=== PATIENT | male | born 1960 | race Caucasian/White ===

== ENCOUNTER 2019-04-04 11:24 | Emergency (ER) | payer OTHER, SELFPAY ==
[2019-04-04 11:54] VITALS: BP 152/106; PULSE 106; RESP 20; TEMP 36.6; O2SAT 98
--- NOTE | 2019-04-04 12:04 | W.ED.GENAD ---
Discharge Plan Disposition Patient Disposition: HOME Condition: Improving Discharge Details Chief Complaint: GenMedical Clinical Impression: Opiate withdrawal Primary Care Provider: Bogdan Floyd ED Provider: Celi Singer Home Meds and New Rx's Prescriptions: New morphine 60 mg capsule, ER multiphase 24 hr 60 mg PO DAILY Qty: 2 RF: 0 Continued lisinopril 20 mg tablet 20 mg PO DAILY Qty: 90 RF: 4 diclofenac sodium 75 mg tablet,delayed release (DR/EC) 75 mg PO BID Qty: 180 RF: 4 multivitamin [One Daily] 1 EACH tablet 1 tab PO DAILY RF: 0 Narcan 4 MG spray,non-aerosol 4 mg NS ONCE Qty: 1 RF: 0 omeprazole 40 MG capsule,delayed release(DR/EC) 40 mg PO DAILY Qty: 90 RF: 3 duloxetine 60 mg capsule,delayed release(DR/EC) 60 mg PO DAILY Qty: 90 RF: 4 morphine 60 mg tablet extended release 60 mg PO DAILY PRN MDD 60 mg Qty: 30 RF: 0 alprazolam 1 mg tablet 1 mg PO HS PRN (Reason: anxiety) Qty: 30 RF: 0 ascorbic acid (vitamin C) 1,000 MG tablet 1,000 mg PO DAILY RF: 0 Discharge Instructions Additional Instructions: Continue medications as previously prescribed. Please keep your upcoming appointment with primary care. If you develop any new or worsening symptoms please seek care urgently once again Referrals: Bogdan Floyd MD [Primary Care Provider] - Discharge Data Discharge Date/Time-TO BE ENTERED AT DEPARTURE: 04/04/19 13:19 Medical Decision Making Patient 59-year-old male who is on chronic opioids, presents today for opiate withdrawal. No vomiting or diarrhea. No abdominal pain. No chest pain, no shortness of breath. He is feeling he is in severe pain, tremulous. On exam, he does appear quite anxious. Vital signs significant for pulse of 106, blood pressure 152/106. Patient has history of osteoarthritis, GERD, Lyme, chronic back pain, hypertension. I did review the PDMP and patient is noted to be prescribed 60 mg morphine sulfate extended release tabs, 30 tabs per month. He seems to be picking these up on a regular basis by routine provider. I do not have concerns at this point for abuse. Patient will be given his daily dosing here. He has an appointment with his primary care in 2 days and will discuss this further with them at this time. After patient received today his daily morphine dose, he is feeling much improved. Is requesting discharge at this time. He has a scheduled appointment with primary care in 2 days at which time he will discuss his further narcotic need. All his questions and concerns were addressed and he is in agreement with this plan. HPI General Mode of arrival: ambulatory. Date/Time Provider Initiated Documentation: 04/04/19 12:01. Limitations to Documentation: no limitations. Information obtained by: patient and RN notes reviewed. HPI Narrative: Patient is 59-year-old male presents today with chief complaint of morphine withdrawal. He reports that he has been on this and release morphine for the past 3 years. States that over the last several months has been weaning himself down is now on 1 dosing of 60 mg p.o. extended release morphine daily. States that he takes this for his foot, knee, back, shoulder. States that he was camping recently and lost the remaining 10 to 11 pills. Is currently feeling shaky, has severe pain. Has not had any morphine in the past 2 days. Related Data Home Medications Medication Instructions Recorded Confirmed multivitamin [One Daily] 1 tab PO DAILY 11/30/12 04/04/19 ascorbic acid (vitamin C) 1,000 mg PO DAILY 06/13/14 04/04/19 Narcan 4 mg NS ONCE #1 spray 02/13/17 04/04/19 omeprazole 40 mg PO DAILY #90 tab-cap 03/23/18 04/04/19 diclofenac sodium 75 mg 75 mg PO BID #180 tab-cap 01/01/19 04/04/19 tablet,delayed release lisinopril 20 mg tablet 20 mg PO DAILY #90 tab 01/01/19 04/04/19 duloxetine 60 mg capsule,delayed 60 mg PO DAILY #90 cap 02/25/19 04/04/19 release morphine 60 mg tablet,extended 60 mg PO DAILY PRN #30 tab-cap MDD 03/15/19 04/04/19 release 60 mg alprazolam 1 mg tablet 1 mg PO HS PRN #30 tab-cap 03/25/19 04/04/19 morphine 60 mg PO DAILY #2 cap 04/04/19 Previous Rx's Medication Instructions Recorded omeprazole 40 mg PO DAILY #90 tab-cap 03/23/18 diclofenac sodium 75 mg 75 mg PO BID #180 tab-cap 01/01/19 tablet,delayed release lisinopril 20 mg tablet 20 mg PO DAILY #90 tab 01/01/19 duloxetine 60 mg capsule,delayed 60 mg PO DAILY #90 cap 02/25/19 release morphine 60 mg tablet,extended 60 mg PO DAILY PRN #30 tab-cap MDD 03/15/19 release 60 mg alprazolam 1 mg tablet 1 mg PO HS PRN #30 tab-cap 03/25/19 morphine 60 mg PO DAILY #2 cap 04/04/19 Allergies Allergy/AdvReac Type Severity Reaction Status Date / Time poison claudia extract Allergy Mild Topical Unverified 04/04/19 12:15 Irritation tramadol AdvReac Severe Confusion Unverified 04/04/19 12:15 fentanyl AdvReac Unverified 04/04/19 12:15 General Stated Complaint: GenMedical IRENE: 3 Review of Systems Constitutional Reports as per HPI, Denies chills, Denies fever(s), Denies headache(s), Denies lethargy and Denies poor appetite Eyes Denies change in vision ENT Denies dizziness and Denies headache(s) Cardiovascular Reports as per HPI, Denies dyspnea and Denies dyspnea on exertion Respiratory Reports as per HPI, Denies chest congestion, Denies cough, Denies pain on inspiration, Denies pain with cough, Denies dyspnea, Denies dyspnea on exertion and Denies wheezing Gastrointestinal Reports as per HPI, Denies abdominal pain, Denies diarrhea, Denies nausea and Denies vomiting Genitourinary Denies system reviewed and no additional complaints, except as docu (denies change in urinary habits) Musculoskeletal Reports as per HPI, Reports back pain, Reports myalgias and Reports atrophy (Patient has chronic pain) Integumentary/Breasts Reports as per HPI and Denies rash Neurologic Reports as per HPI, Denies dizziness, Denies headache(s) and Reports tremor(s) (Patient feels tremulous associated with opiate withdrawal) Allergic/Immunologic Denies wheezing [facility] Medical History BPH (benign prostatic hyperplasia) Chronic pain Hypertension Osteoarthritis Surgical History Cholecystectomy (~10/2009) Status post cholecystectomy (Resolved) Status post hip replacement (Resolved 06/20/14) Total replacement of hip Family History Mother No problems noted. Father MS (multiple sclerosis) Sister No problems noted. Brother Diabetes Son No problems noted. Son No problems noted. Daughter No problems noted. Maternal Aunt Neoplasm Social History Smoking/Tobacco Use Status: Never Alcohol Intake: never Drug use: Never Substance use type: does not use Pets and animals: Yes Pets and animals: dog(s) What type of physical activity do you participate in: none Lula/Buddhist: Oriental Orthodox Do you feel safe in your relationship?: Yes Exam Const General: cooperative, healthy appearing, no acute distress, well developed and anxious Nutritional Appearance: well nourished and overweight Orientation: alert, awake and oriented x3 HENMT Head: normal to inspection Ears: hearing grossly normal bilaterally Mouth: moist mucous membranes Chest Chest: normal inspection of the chest, normal palpation of entire chest wall and no crepitus Resp Effort & Inspection: normal respiratory effort, able to speak in complete sentences and no respiratory distress Auscultation: clear to auscultation bilaterally, no rales, no rhonchi and no wheezes Cardio Rate: regular rate Rhythm: regular rhythm Heart Sounds: S1 normal and S2 normal GI Inspection: normal to inspection, no edema, non-distended and obesity Palpation: soft, no hepatosplenomegaly, not firm, no guarding, not rigid and nontender Auscultation: normal bowel sounds Skin General skin exam: no rashes or lesions noted Trauma: no lacerations or abrasions Neuro General: alert, awake and oriented x3 Cognition: normal cognition Speech: speech normal Gait: normal gait Psych Appearance: grossly normal and well kempt Mental Status: mental status grossly normal Speech and Movement: speech and movement normal Course Vital Signs Temperature 36.6 C 04/04/19 11:54 Pulse 106 H 04/04/19 11:54 Respiratory Rate 20 04/04/19 11:54 Blood Pressure 152/106 H 04/04/19 11:54 Pulse Oximetry 98 04/04/19 11:54 Temperature 36.6 C 04/04/19 11:54 Temperature Source Skin 04/04/19 11:54 Pulse 106 H 04/04/19 11:54 Respiratory Rate 20 04/04/19 11:54 Respiratory Effort Non-Labored 04/04/19 11:57 Blood Pressure 152/106 H 04/04/19 11:54 Pulse Oximetry 98 04/04/19 11:54 Oxygen Delivery Method Room Air 04/04/19 11:54 Oxygen Flow Rate 0 04/04/19 11:54
[2019-04-04 13:20] VITALS: BP 144/89; PULSE 95; RESP 20; O2SAT 96
== END 2019-04-04 13:19 | disposition home or self-care (01) ==
PROVIDERS: Emergency Provider Physician Assistant; PCP Family Medicine
DX: F11.93 Opioid use, unspecified with withdrawal (principal); G89.29 Other chronic pain; M54.9 Dorsalgia, unspecified; I10 Essential (primary) hypertension
CPT/HCPCS: 99283

== ENCOUNTER 2019-07-10 05:15 | Emergency (ER) | payer OTHER, SELFPAY ==
[2019-07-10] VITALS (7 sets, daily range): BP systolic 129–155; BP diastolic 80–95; PULSE 63–86; RESP 15–19; TEMP 36.8; O2SAT 96–98
[2019-07-10 06:11] LABS: Abs Immature Grans 0.03 k/cumm (0.0-0.09); Absolute Basophil Count 0.02 k/cumm (0.0-0.2); Absolute Eosinophil Count 0.12 k/cumm (0.0-0.7); Absolute Monocyte Count 0.56 k/cumm (0.11-0.7); Absolute Neutrophil Count 2.02 k/cumm (1.2-6.7); Basophils % 0.5; HCT 43.2 % (40.0-50.0); HGB 14.3 g/dL (13.5-17.5); Immature Grans % 0.7; Lymphocytes % 32.1; Mean Corp. HGB Concentration 33.1 g/dL (32.0-36.0); Mean Corpuscular Hemoglobin 31.1 pg (27.0-33.0); Mean Corpuscular Volume 93.9 fL (80-95); Mean Platelet Volume 9.8 fL (8.0-11.0); Monocytes % 13.8; Neutrophils % 49.9; Platelet Count 238 x1000/uL (130-400); RBC Distribution Width 12.9 % (11.8-14.1); White Blood Cell Count 4.05 k/cumm (4.4-10.8)
--- NOTE | 2019-07-10 06:17 | ED.GENADUL_ITS ---
Discharge Plan Disposition Patient Disposition: HOME Condition: Good Discharge Details Chief Complaint: Chest Pain Clinical Impression: Acute epigastric pain, Hepatic cyst Primary Care Provider: Bogdan Floyd ED Provider: Jose Maria Nielson Home Meds and New Rx's Prescriptions: New ranitidine HCl 300 mg capsule 300 mg PO BID 30 Days Qty: 60 RF: 0 sucralfate [Carafate] 1 gram tablet 1 gm PO BID 30 Days Qty: 60 RF: 0 lidocaine [Lidoderm] 1 PATCH patch 1 patch Topical Q24H Qty: 4 RF: 0 No Action lisinopril 20 mg tablet 20 mg PO DAILY Qty: 90 RF: 4 diclofenac sodium 75 mg tablet,delayed release (DR/EC) 75 mg PO BID Qty: 180 RF: 4 omeprazole 40 mg capsule,delayed release(DR/EC) 40 mg PO DAILY Qty: 90 RF: 3 multivitamin [One Daily] 1 EACH tablet 1 tab PO DAILY RF: 0 Narcan 4 MG spray,non-aerosol 4 mg NS ONCE Qty: 1 RF: 0 duloxetine 60 mg capsule,delayed release(DR/EC) 60 mg PO DAILY Qty: 90 RF: 4 alprazolam 1 mg tablet 1 mg PO HS PRN (Reason: anxiety) Qty: 30 RF: 0 morphine 60 mg tablet extended release 60 mg PO DAILY PRN MDD 60 mg Qty: 30 RF: 0 ascorbic acid (vitamin C) 1,000 MG tablet 1,000 mg PO DAILY RF: 0 Discharge Instructions Instructions: Gastritis (ED) Additional Instructions: At this time there is no evidence of significant heart abnormality, your CT scan does show some hepatic cysts which are otherwise unremarkable. You do have notable thickening of your esophagus suggestive of gastritis and inflammation. Please take your omeprazole, but please also take the new Carafate and ranitidine as directed. Avoid any spicy foods, tomato-based products, or citrus products. Please use the Lidoderm patch for your back, if your insurance does not cover the prescribed medication and you can get [id number] Lidoderm patches at 4%. If you notice any worsening of your symptoms, or any new symptoms such as vomiting, diarrhea, fever, chills, shortness of breath, chest pain, numbness, weakness, or fainting , please return immediately to the emergency department for reevaluation. Please follow up with your primary care provider as soon as possible for reassessment and reevaluation. As always, it was a pleasure participating in your medical care today. Referrals: Bogdan Floyd MD [Primary Care Provider] - Discharge Data Discharge Date/Time-TO BE ENTERED AT DEPARTURE: 07/10/19 08:27 Medical Decision Making This is a 59-year-old male with past medical history of chronic back pain, chronic degenerative disc disease, previous reflux, NSAID use for his chronic back pain, chronic narcotic use for his chronic pain, hypertension, and sacroiliitis who presents today for evaluation of back chest and abdominal pain. Pain is mild, and definitely more chronic than acute. Vascular exam is unremarkable. Mild reproducible tenderness in the epigastric region. Differential is highest for gastritis and esophagitis with his long-standing NSAID use, however his chest pain in conjunction with the back pain obviously increases the differential for life-threatening abnormalities like dissection although less likely. CTA of the chest abdomen and pelvis demonstrates no evidence of dissection aneurysm or PE. He does have some hepatic cysts, but no other acute process. He does have mildly thickened esophagus, which would correlate well with esophagitis. He was given a GI cocktail and this resolved his symptoms. Troponin, EKG are unremarkable, laboratory work-up benign. Erica ent feeling much better. Signs and symptoms at this time appear clinically consistent with esophagitis and gastritis. Clinically inconsistent with dissection, PE, or ACS especially due to the chronicity of symptoms. I do feel that aggressive treatment of his reflux is indicated at this time. We will add Carafate, ranitidine, and can recommend continuing his omeprazole. Discussed dietary changes, and the importance of close follow-up with PCP. I have extensively reviewed the treatment plan and discharge instructions with the patient and their family. I have addressed all patient concerns at this time. The patient and family was made aware of what symptoms to monitor for that would warrant a return to the emergency department. Discussed the plan with the patient and family, they demonstrate verbal understanding and agreement with our assessment and plan at this time. EKG 5: 32 Rate 69, intervals normal, sinus rhythm, no significant ST elevations or depressions, no T wave inversions except for lead III and aVF. No Q waves. No evidence of STEMI. Minimal less than 1 mm repolarization in V1 and V2. EKG from 06/04/2019 shows identical findings. FINDINGS: Pulmonary arteries: Normal. No pulmonary emboli. Aorta: Unremarkable. No aortic aneurysm. No aortic dissection. Aortic valvular calcifications. Lungs: Tiny 1.5 mm calcified granuloma of the right lower lung. No con solidation. No masses. Pleural space: Unremarkable. No pneumothorax. No pleural effusion. Heart: Unremarkable. No cardiomegaly. No pericardial effusion. Mediastinum: The esophagus appears mildly thickened and/or filled with fluid. Lymph nodes: Unremarkable. No enlarged lymph nodes. Bones/joints: Severe degenerative changes are partially visualized at the shoulders. Healed right posterior rib fractures. No acute fracture. Soft tissues: Unremarkable. IMPRESSION: 1. No acute vascular findings. 2. Mildly thickened and/or fluid filled esophagus. Recommend correlation for reflux and/or esophagitis. FINDINGS: Aorta: No aortic aneurysm. No aortic dissection. Celiac trunk and mesenteric arteries: No occlusion or significant stenosis. Atherosclerotic calcification at the origin of the celiac trunk without flow limiting stenosis. Renal arteries: No occlusion or significant stenosis. Liver: See Gallbladder And Bile Ducts Finding. Gallbladder and bile ducts: The gallbladder is absent with moderate biliary ductal dilatation. Intrahepatic ductal dilatation with likely small biliary cysts demonstrated within the left liver. Other well marginated fluid density cysts are seen elsewhere throughout the liver, not particular connected to the biliary tree with the largest at the inferior right liver measuring 2.5 cm. Pancreas: Normal. No ductal dilation. Spleen: Normal. No splenomegaly. Adrenals: Normal. No mass. Kidneys and ureters: No hydronephrosis. No stones. Partially visualized right kidney which demonstrates a lower pelvic positioning. Stomach and bowel: Unremarkable. No obstruction. No mucosal thickening. Lymph nodes: Unremarkable. No enlarged lymph nodes. Intraperitoneal space: Unremarkable. No free air. No significant fluid collection. Bones/joints: Unremarkable. No acute fracture. No dislocation. Dextroconvex thoracolumbar curvature. Spondylosis. No no acute abnormality. No suspicious osseous lesion. Soft tissues: Unremarkable. IMPRESSION: 1. No acute abdominal vascular findings. 2. Absent gallbladder with biliary ductal dilatation, including intrahepatic bile duct dilatation. Small cysts appear to indicate with the biliary system on the left, likely biliary cysts. Other well marginated fluid density cysts are seen elsewhere throughout the liver as described above. Thank you for allowing us to participate in the care of your patient. Dictated and Authenticated by: Bogdan Huffman MD 07/10/2019 7:47 AM Eastern Time ([place] & [place]) HPI General Date/Time Provider Initiated Documentation: 07/10/19 05:17 . HPI Narrative: This is a 59-year-old male with past medical history of chronic back pain, chronic degenerative disc disease, previous reflux, NSAID use for his chronic back pain, chronic narcotic use for his chronic pain, hypertension, and sacroiliitis who presents today for evaluation of back chest and abdominal pain. Patient states that he has had his achy/burning/pressure-like sensation that goes from his back to his epigastric area and into his chest. It is been present for the last few weeks, however it has worsened in the last 4 to 5 days. He denies any tearing or ripping sensation. He denies any personal or family history of dissection or aneurysm. He denies any previous history of cardiac disease. He has had a stress test recently for 1 of his future surgeries, this test was unremarkable on an outpatient basis. Patient has no other complaints at this time. He denies any exertional component. He denies any fever or chills, cough or shortness of breath. Related Data Home Medications Medication Instructions Recorded Confirmed multivitamin [One Daily] 1 tab PO DAILY 11/30/12 07/10/19 ascorbic acid (vitamin C) 1,000 mg PO DAILY 06/13/14 07/10/19 Narcan 4 mg NS ONCE #1 spray 02/13/17 07/10/19 diclofenac sodium 75 mg 75 mg PO BID #180 tab-cap 01/01/19 07/10/19 tablet,delayed release lisinopril 20 mg tablet 20 mg PO DAILY #90 tab 01/01/19 07/10/19 duloxetine 60 mg capsule,delayed 60 mg PO DAILY #90 cap 02/25/19 07/10/19 release omeprazole 40 mg capsule,delayed 40 mg PO DAILY #90 tab-cap 04/06/19 07/10/19 release alprazolam 1 mg tablet 1 mg PO HS PRN #30 tab-cap 06/29/19 07/10/19 morphine 60 mg tablet,extended 60 mg PO DAILY PRN #30 tab-cap MDD 06/29/19 07/10/19 release 60 mg lidocaine [Lidoderm] 1 patch TOPICAL Q24H #4 patch 07/10/19 ranitidine HCl 300 mg PO BID 30 Days #60 cap 07/10/19 sucralfate [Carafate] 1 gm PO BID 30 Days #60 tab 07/10/19 Previous Rx's Medication Instructions Recorded diclofenac sodium 75 mg 75 mg PO BID #180 tab-cap 01/01/19 tablet,delayed release lisinopril 20 mg tablet 20 mg PO DAILY #90 tab 01/01/19 duloxetine 60 mg capsule,delayed 60 mg PO DAILY #90 cap 02/25/19 release omeprazole 40 mg capsule,delayed 40 mg PO DAILY #90 tab-cap 04/06/19 release alprazolam 1 mg tablet 1 mg PO HS PRN #30 tab-cap 06/29/19 morphine 60 mg tablet,extended 60 mg PO DAILY PRN #30 tab-cap MDD 06/29/19 release 60 mg lidocaine [Lidoderm] 1 patch TOPICAL Q24H #4 patch 07/10/19 ranitidine HCl 300 mg PO BID 30 Days #60 cap 07/10/19 sucralfate [Carafate] 1 gm PO BID 30 Days #60 tab 07/10/19 Allergies Allergy/AdvReac Type Severity Reaction Status Date / Time poison claudia extract Allergy Mild Topical Unverified 06/04/19 13:26 Irritation tramadol AdvReac Severe Confusion Unverified 06/04/19 13:26 fentanyl AdvReac Unverified 06/04/19 13:26 General IRENE: 3 Review of Systems All systems reviewed & are unremarkable except as noted in HPI and below PFSH Family History Mother No problems noted. Father MS (multiple sclerosis) Sister No problems noted. Brother Diabetes Son No problems noted. Son No problems noted. Daughter No problems noted. Maternal Aunt Neoplasm BREAST;ADNEXA Social History Smoking/Tobacco Use Status: Never Alcohol Intake: never Drug use: Never Substance use type: does not use Pets and animals: Yes Pets and animals: dog(s) What type of physical activity do you participate in: none Lula/Druze: Christianity Do you feel safe in your relationship?: Yes Exam Narrative Exam Narrative: 1.Const: Well-nourished, Well-developed, appearing stated age 2.Eyes: PERRL, no conjunctival injection, and symmetrical lids. 3.ENT: Atraumatic external nose and ears. Moist MM. Neck: Symmetric, trachea midline, No thyromegaly. 4.CVS: +S1/S2, No murmurs or gallops. Peripheral pulses 2+ and equal in all extremities. Brisk capillary refill in all extremities. Radial pulses are equal bilaterally. No significant reproducible chest wall tenderness. 5.RESP: Unlabored respiratory effort. Clear to auscultation bilaterally. No wheezes rales or rhonchi 6.GI: Soft, Nondistended, No hepatosplenomegaly. No guarding or rebound. Minimal epigastric tenderness. 7.MSK: Normocephalic/Atraumatic, Extremities w/o deformity or ttp No cyanosis or clubbing, Normal movement of all extremities 8.Skin: Warm, Dry. No rashes or lesions. 9.Neuro: last waxer II-XII grossly intact. Sensation grossly intact, no focal neurologic deficits. 10.Psych: (AAO) x3. Appropriate mood and affect Course Lab/Test Results Lab/Test Results: Laboratory Tests Range/Units 07/10/19 06:00 WBC (4.4-10.8) k/cumm 4.05 L RBC (4.50-6.00) m/cumm 4.60 Hgb (13.5-17.5) g/dL 14.3 Hct (40.0-50.0) % 43.2 MCV (80-95) fL 93.9 MCH (27.0-33.0) pg 31.1 MCHC (32.0-36.0) g/dL 33.1 RDW (11.8-14.1) % 12.9 Plt Count (130-400) x1000/uL 238 MPV (8.0-11.0) fL 9.8 Immature Gran % 0.7 Neutrophils % 49.9 Lymphocytes % 32.1 Monocytes % 13.8 Eosinophils % 3.0 Basophils % 0.5 Absolute Neutrophils (1.2-6.7) k/cumm 2.02 Absolute Lymphocytes (1.2-3.4) k/cumm 1.30 Absolute Monocytes (0.11-0.7) k/cumm 0.56 Absolute Eosinophils (0.0-0.7) k/cumm 0.12 Absolute Basophils (0.0-0.2) k/cumm 0.02
[2019-07-10 06:26] LABS: ALT 37 U/L (16-63); AST 22 U/L (15-37); Alkaline Phosphatase 106 U/L (46-116); BUN 27 mg/dL (7-18); Bilirubin, Total 0.2 mg/dL (0.2-1.0); CREATININE 0.84 mg/dL (0.70-1.30); Chloride 103 mmol/L (98-107); Glucose 109 mg/dL (74-106); Lipase 86 U/L (73-393); Potassium 4.9 mmol/L (3.5-5.1); Sodium 139 mmol/L (136-145); Total Protein 7.9 g/dL (6.4-8.2)
[2019-07-10 06:33] LABS: Troponin I < 0.05 ng/Ml (<0.06)
[2019-07-10] MEDS: Acetaminophen 500 MG TAB 1000 MG PO (06:40)
--- NOTE | 2019-07-10 07:04 | DI.CT_ITS ---
EXAM: CT THORAX ABDOMEN CTA CLINICAL HISTORY: pain from back to chest, and lower back pain TECHNIQUE: 100 cc Omnipaque 350. The injection rate was decreased due to limited IV access. COMPARISON: PELVIC/LOWER ABD WITH CON(P) from 12/30/2011 FINDINGS: There is no evidence of aortic dissection or aneurysm. The pulmonary arteries are suboptimally opac ified. No central pulmonary emboli are seen. There are no pleural or pericardial effusions or evide nce of infiltrates. No adenopathy is seen. The esophagus appears fluid filled. The stomach shows m inimal fluid and is not distended. There are mild atherosclerotic changes at the distal abdominal ao rta and proximal iliac arteries. The celiac axis, SMA and renal arteries appear patent. Patient is status post cholecystectomy. There are multiple low-density lesions of the liver likely representing cysts. The spleen, pancreas and adrenals appear normal. 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 Degenerative changes and scoliosis are noted in the spine. The visualized portions of the bowel are unremarkable. IMPRESSION: No acute abnormality.
[2019-07-10] MEDS: Omnipaque 350 MG/ML 100 ML BTL IJ (07:06)
[2019-07-10] MEDS: Lidocaine 5% Patch 1 PATCH TP (07:37)
--- NOTE | 2019-07-10 07:47 | DI.VRAD_ITS ---
PROCEDURE INFORMATION: Exam: CT Angiography Chest With Contrast Exam date and time: 07/10/2019 5:26 AM Age: 59 years old Clinical history: Other: Pain from back to chest and lower back TECHNIQUE: Imaging protocol: Computed tomographic angiography of the chest with intravenous contrast. 3D rendering: MIP reconstructed images were created and reviewed. Radiation optimization: All CT scans at this facility use at least one of these dose optimization techniques: automated exposure control; mA and/or kV adjustment per patient size (includes targeted exams where dose is matched to clinical indication); or iterative reconstruction. Contrast material: [id number]; Contrast volume: 100 ml; Contrast route: IV LT HAND 20G; COMPARISON: CR RIGHT RIBS PA CXR-3 VIEWS 08/10/2017 3:46 PM FINDINGS: Pulmonary arteries: Normal. No pulmonary emboli. Aorta: Unremarkable. No aortic aneurysm. No aortic dissection. Aortic valvular calcifications. Lungs: Tiny 1.5 mm calcified granuloma of the right lower lung. No consolidation. No masses. Pleural space: Unremarkable. No pneumothorax. No pleural effusion. Heart: Unremarkable. No cardiomegaly. No pericardial effusion. Mediastinum: The esophagus appears mildly thickened and/or filled with fluid. Lymph nodes: Unremarkable. No enlarged lymph nodes. Bones/joints: Severe degenerative changes are partially visualized at the shoulders. Healed right posterior rib fractures. No acute fracture. Soft tissues: Unremarkable. IMPRESSION: 1. No acute vascular findings. 2. Mildly thickened and/or fluid filled esophagus. Recommend correlation for reflux and/or esophagitis. PROCEDURE INFORMATION: Exam: CT Angiography Abdomen With Contrast Exam date and time: 07/10/2019 5:26 AM Age: 59 years old Clinical history: Other: Pain from back to chest and lower back TECHNIQUE: Imaging protocol: Computed tomographic angiography images of the abdomen with intravenous contrast material. 3D rendering: MIP reconstructed images were created and reviewed. Radiation optimization: All CT scans at this facility use at least one of these dose optimization techniques: automated exposure control; mA and/or kV adjustment per patient size (includes targeted exams where dose is matched to clinical indication); or iterative reconstruction. Contrast material: [id number]; Contrast volume: 100 ml; Contrast route: IV LT HAND 20G; COMPARISON: CR RIGHT RIBS PA CXR-3 VIEWS 08/10/2017 3:46 PM FINDINGS: Aorta: No aortic aneurysm. No aortic dissection. Celiac trunk and mesenteric arteries: No occlusion or significant stenosis. Atherosclerotic calcification at the origin of the celiac trunk without flow limiting stenosis. Renal arteries: No occlusion or significant stenosis. Liver: See Gallbladder And Bile Ducts Finding. Gallbladder and bile ducts: The gallbladder is absent with moderate biliary ductal dilatation. Intrahepatic ductal dilatation with likely small biliary cysts demonstrated within the left liver. Other well marginated fluid density cysts are seen elsewhere throughout the liver, not particular connected to the biliary tree with the largest at the inferior right liver measuring 2.5 cm. Pancreas: Normal. No ductal dilation. Spleen: Normal. No splenomegaly. Adrenals: Normal. No mass. Kidneys and ureters: No hydronephrosis. No stones. Partially visualized right kidney which demonstrates a lower pelvic positioning. Stomach and bowel: Unremarkable. No obstruction. No mucosal thickening. Lymph nodes: Unremarkable. No enlarged lymph nodes. Intraperitoneal space: Unremarkable. No free air. No significant fluid collection. Bones/joints: Unremarkable. No acute fracture. No dislocation. Dextroconvex thoracolumbar curvature. Spondylosis. No no acute abnormality. No suspicious osseous lesion. Soft tissues: Unremarkable. IMPRESSION: 1. No acute abdominal vascular findings. 2. Absent gallbladder with biliary ductal dilatation, including intrahepatic bile duct dilatation. Small cysts appear to indicate with the biliary system on the left, likely biliary cysts. Other well marginated fluid density cysts are seen elsewhere throughout the liver as described above. Dictated and Authenticated by: Bogdan Huffman MD. Ordering:ROSA Moise MD
[2019-07-10 08:04] LABS: Bilirubin Negative (Negative); Blood Trace-intact (Negative); Clarity Clear (Clear); Glucose Negative (Negative); Ketones Negative (Negative); Leukocyte Esterase Negative (Negative); Nitrite Negative (Negative); Urobilinogen 0.2 EU/dL (Up TO 0.2)
[2019-07-10 08:24] LABS: Bacteria Negative HPF (Negative); C & S Indicated? No; Casts Negative LPF (Negative); Crystals Negative HPF (Negative); Epithelial Cells Negative HPF (Negative); Mucus Trace (Negative); RBC Negative HPF (0-2); WBC 0-2 HPF (0-5)
== END 2019-07-10 08:27 | disposition home or self-care (01) ==
PROVIDERS: Emergency Provider Student in an Organized Health Care Education/Training Program; PCP Family Medicine
DX: R10.13 Epigastric pain (principal); K76.89 Other specified diseases of liver; I10 Essential (primary) hypertension
CPT/HCPCS: 36415; 71275; 74175; 80053; 83690; 93005; 99285; 81003; 81015; 84484; 85025; 93010; J3490

== ENCOUNTER 2019-12-03 08:14 | Outpatient (CLI) | payer OTHER, SELFPAY ==
--- NOTE | 2019-12-03 | DI.RAD_ITS ---
EXAM: XR FOOT RT COMPLETE and XR ankle right complete CLINICAL HISTORY: RT FOOT PAIN, M79.671,STATUS OF ARTHRODESIS,Z98.1,Z98.890. RT ANKLE PAIN TECHNIQUE: 2D digital imaging was performed. COMPARISON: RIGHT FOOT COMPLETE from 08/29/2015 XR ankle and foot right from [facility], September 2019 FINDINGS: BONES: The bones appear osteopenic which may be due to decreased use. There are again seen findings of arthrodesis of the 1st tarsal metatarsal joint, the talonavicular joint and the talocalcaneal join t. Orthopedic hardware appears intact. JOINTS: No dislocation present. SOFT TISSUE: There is soft tissue swelling about the hindfoot. IMPRESSION: 1. Stable postsurgical changes of the right foot. 2. Generalized osteopenia which may be due to decreased use. DATA REPOSITORY: RADIATION DOSE DELIVERED:
== END 2019-12-03 08:34 ==
PROVIDERS: PCP Family Medicine; Visit Provider Orthopaedic Surgery Foot and Ankle Surgery
DX: M79.671 Pain in right foot (principal); Z98.1 Arthrodesis status; M25.571 Pain in right ankle and joints of right foot; M85.88 Other specified disorders of bone density and structure, other site; M79.89 Other specified soft tissue disorders
CPT/HCPCS: 73610; 73630

== ENCOUNTER 2020-01-14 09:26 | Outpatient (CLI) | payer OTHER, SELFPAY ==
--- NOTE | 2020-01-14 09:15 | DI.RAD_ITS ---
EXAM: XR KNEE LT 2V AP,LAT CLINICAL HISTORY: knee pain. TECHNIQUE: 2D digital imaging was performed. COMPARISON: No exams were available for comparison FINDINGS: There is severe narrowing of both medial and lateral femoral tibial joints, with [id number] appeara nce. There is lateral subluxation of the tibia with respect to the femoral condyles. There is promi nent periarticular spurring and sclerosis. There is also prominent spurring at the patellofemoral hilaria int. A joint effusion is seen. IMPRESSION: Severe degenerative changes of the femoral tibial joints. DATA REPOSITORY: RADIATION DOSE DELIVERED:
--- NOTE | 2020-01-14 09:15 | DI.RAD_ITS ---
EXAM: XR STANDING ALIGNMENT CLINICAL HISTORY: knee pain. TECHNIQUE: 2D digital imaging was performed. Standing AP views were performed from the upper pelvis through the ankles. COMPARISON: CR RT HIP COMPLETE AP PELVIS from 06/21/2015 CR RIGHT ANKLE COMPLETE from 08/29/2015 CR XR ANKLE RT COMPLETE from 12/03/2019 FINDINGS: There is a right total hip prosthesis. There is mild left hip joint space narrowing and acetabular s purring, not significantly changed. The left humeral head projects superior to the right. There are severe degenerative changes of the medial femoral tibial joint of the left knee with varus angulatio n. The right knee joint spaces are well maintained. There is the lateral joint space of the right a nkle. Hardware is seen. There is narrowing of the medial tibiotalar joint the left ankle.. IMPRESSION: Severe degenerative changes of the medial femoral tibial joint of the left knee. Leg length discrepa ncy. DATA REPOSITORY: RADIATION DOSE DELIVERED:
== END 2020-01-14 09:46 ==
PROVIDERS: PCP Family Medicine; Referring Provider Family Medicine; Visit Provider Student in an Organized Health Care Education/Training Program
DX: M25.562 Pain in left knee (principal); M25.462 Effusion, left knee; M17.12 Unilateral primary osteoarthritis, left knee; M16.12 Unilateral primary osteoarthritis, left hip; M21.70 Unequal limb length (acquired), unspecified site; Z96.641 Presence of right artificial hip joint
CPT/HCPCS: 73560; 77073

== ENCOUNTER 2020-03-17 07:27 | Outpatient (CLI) | payer OTHER, SELFPAY ==
[2020-03-19 00:30] LABS: COVID-19 RT-PCR Result NEGATIVE (Negative)
== END 2020-03-17 07:47 ==
PROVIDERS: PCP Family Medicine; Visit Provider Student in an Organized Health Care Education/Training Program
DX: Z01.818 Encounter for other preprocedural examination (principal)
CPT/HCPCS: U0003

== ENCOUNTER 2020-03-21 07:00 | Inpatient (IN) | payer OTHER, SELFPAY ==
[2020-03-21] VITALS (9 sets, daily range): BP systolic 121–153; BP diastolic 71–93; PULSE 61–75; RESP 13–20; TEMP 36.2–36.8; O2SAT 98–99
[2020-03-21 08:17] LABS: HCT 43.1 % (40.0-50.0); MCH 30.9 pg (27.0-33.0); MCHC 32.5 % (32.0-36.0); MCV 95.1 fL (80-95); MPV 9.8 fL (8.0-11.0); Platelet Count 239 10^3/uL (130-400); RBC 4.53 10^6/uL (4.36-5.78); RDW 13.1 % (11.8-14.1); RDW-SD 45.9 fL; WBC 4.88 10^3/uL (4.4-10.8)
[2020-03-21] MEDS: Acetaminophen 500 MG TAB 1000 MG PO (08:17)
[2020-03-21] MEDS: Gabapentin 300 MG CAP PO (08:18)
[2020-03-21] MEDS: Celecoxib 200 MG CAP 400 MG PO (08:18)
[2020-03-21] MEDS: Lactated Ringers 1,000 ML 80 ML IV ×2 (08:18→12:21)
[2020-03-21 08:31] LABS: Anion Gap 8.7 mmol/L (3-11); BUN 20 mg/dL (7-18); CO2 26.3 mmol/L (21.0-32.0); CREATININE 0.81 mg/dL (0.70-1.30); Calcium 9.3 mg/dL (8.5-10.1); Chloride 102 mmol/L (98-107); Glucose 115 mg/dL (74-106); Potassium 4.5 mmol/L (3.5-5.1); Sodium 137 mmol/L (136-145)
[2020-03-21] MEDS: ceFAZolin 2 GM/50 ML BAG IVPB (10:44)
[2020-03-21] MEDS: Bupivacaine 0.25% Pres-Free 30 ML VIAL (12:06)
[2020-03-21] MEDS: Normal Saline 20 ML VIAL (12:07)
[2020-03-21] MEDS: Ketorolac 30 MG/ML VIAL (12:07)
--- NOTE | 2020-03-21 12:55 | ROE_ITS ---
Date of service: 03/21/20 Time of Service: 12:55 Operative Note Operative Note DATE OF PROCEDURE: 03/21/20 PRE-OP DIAGNOSIS: Left Knee Arthritis POST-OP DIAGNOSIS: same PROCEDURE: Left Total Knee Arthroplasty with Intraoperative Navigation SURGEON: Dayton White ROUGH RICE GRADER: Maria Isabel Lizarraga ANESTHESIA: regional and spinal ESTIMATED BLOOD LOSS: 150 PATHOLOGY: none sent TOURNIQUET TIME: 28 COMPLICATIONS: None Patient was transported to: PACU Patient's condition: stable Implants: 1. Depuy Attune Cruciate Retaining Femoral Component, Size 8 2. Depuy Attune Rotating Platform Tibial Component, Size 7 3. Depuy Attune 8x7mm CR, RP Poly 4. Depuy Attune Patellar Component, Size 38mm Indications: I have seen Bam in clinic for symptoms of knee arthritis, confirmed with radiographic findings. Bam has exhausted nonoperative methods and was having significant limitations in daily function and desired better function and less pain. I discussed the technical details of a knee replacement. I explained the risks of the procedure to include, but not limited to, bleeding, infection, pain, stiffness, fracture, damage to nerves and vessels, damage to muscles and tendons, loosening, need for repeat procedure, blood clot and cardiopulmonary demise. Despite these risks, he elected to proceed. Findings: There was significant signs of arthritis throughout the knee. Practically no cartilage was remaining over the medial femur or a large portion of the lateral femur. Large osteophytes are present throughout all 3 compartments. Procedure Description: Bam was greeted in the preoperative holding area where the correct side was identified and marked. The consent was reviewed with the patient and signed. The history and physical was updated. All questions were answered. Preoperative mediacations were administered: Acetaminophen 1000mg, Celebrex 400mg, Gabapentin 300mg, and Oxycontin 10mg. An adductor canal block was then administered by the anesthesia team in the PACU. Bam was taken back to the operating room. A spinal anesthestic was then administered. The patient was placed into the supine position on the operating room table. A nonsterile tourniquet was placed high onto the leg but only used for cementing. Posts were placed for positioning during the procedure. All bony prominences were well padded. Prophylactic antibiotics in the form of cefazolin were administered. 1g of Tranxemic Acid was given intravenously within 30 minutes of incision. The left leg was then prepped with Chloraprep and draped in a standard fashion with impervious stockinette and extremity drape with Iodine impregnated skin protection. A timeout to confirm correct identity, side and site, procedure, allergies, anesthesia, and medical concerns was performed. With the knee in some flexion, a midline incision was made overlying the knee. Full thickness skin flaps were raised once the extensor mechanism was encountered. These were raised medially and laterally. Any bleeding was controlled with electrocautery. Once the extensor mechanism was fully exposed, a medial parapatellar arthrotomy was performed in a flexed position. All bleeding from the arthrotomy and the geniculate arteries was coagulated. A medial subperiosteal peel was performed with electrocautery to the midcoronal plane. The fat pad was removed while keeping the patellar tendon protected. The anterior distal femur synovium was removed for later visualization. The ACL and PCL were resected and the anterior horn of the lateral meniscus was transected. The knee was then flexed with the patella everted. Large osteophytes from the tibia were removed. Large osteophytes from the femur were removed. A single starting pin was then placed 1cm anterior to the PCL insertion and the notch in the direction of the femoral head. The OrthoAlign device was applied over the pin. It was oriented to be in line with the epicondylar axis and the trochlear groove. It was then pinned into place. The navigation computer was then turned on and calibrated. The distal femur cut was set at 0 degrees varus/valgus and 2.5 degrees flexion. The distal femur cutting guide then was positioned for a 9mm cut. The distal femur was cut with an oscillating saw while protecting the soft tissues. The tibia was then addressed. The OrthoAlign device was placed over the tibial tubercle and medial tibia and secured into position. Once again, OrthoAlign was calibrated and then set for a 0 degree varus/valgus cut and 6 degrees of posterior slope. With this locked into position, the cut thickness stylus was used to assess cut thickness. The medial side, most involved side, was set for a 2mm cut. This was then held in position and pinned into place with 2 additional pins and a cross pin for stability. The medial and lateral collateral ligaments were protected and the cut was performed. With this completed, it was assessed and noted to be of appropriate dimensions. The guide and OrthoAlign was removed. A spacer block was inserted and the knee was brought into extension. The 7mm spacer block provided full extension, without hyperextension and with stability of both the medial and lateral collateral ligaments was assessed. The pins from the femur and the tibia were then removed. The distal femur was then sized. The anterior stylus was placed onto the lateral ridge of the anterior femur. This indicated a size 8 femur. The external rotation of the guide was adjusted to 5 degrees to match the epicondylar axis, perpendicular to [place]?s line. The 4-in-1 cutting guide was the placed. The posterior medial femur cut was evaluated and appeared of good thickness. The spacer block was inserted underneath the cutting guide and stability was confirmed in 90 degrees of flexion. An diamante wing was used to confirm appropriate position of the anterior cut to avoid notching. This cutting guide was ensured to be flush on the cut surface and then pinned into place with headed pins. While protecting the soft tissues, quad tendon, and collateral ligaments, the anterior and posterior cuts were performed with a saw. The central two pins were removed and the posterior and anterior chamfers were cut next. The notch-cutting guide was placed. This was pinned to lateralize the femoral component as much as possible while keeping it flush on the cut surface. This was then pinned into position. A reciprocating saw was used to make the notch cut. A rasp smoothed the cut surfaces. A trial posterior stabilized femoral component was then inserted, impacted down to the cut surfaces, and the lug holes were drilled. A provisional trial tibial component was placed and the knee was brought through range of motion. There was noted to be excellent extension and flexion. There was no significant instability. The patella was tracking without thumbs. The tibial cut surface was fully exposed. The medial and lateral menisci were removed. The tibia was then sized as a 7. The tibia had been previously marked during trialing to correspond to the center of the tibial component to help with rotation. The trial was aligned to this trixie, approximately rotated to the medial 1/3rd of the tibial tubercle. The trial was pinned into place. The tibia was prepared with a reamer and a keel punch. The knee was then brought into extension and the patella was measured as 28mm. Using the patellar clamp and cut guide, this was resected to a flat surface with at least 13mm of thickness remaining. The size 38 patella fit the best. This was oriented and then clamped into position. The lugs were drilled. The trial components were removed. The final components, except for the polyethylene were opened on the back table. The periosteal and capsular tissues, especially posteriorly, around the knee were then systematically injected with a periarticular cocktail consisting of 50cc 0.25% Marcaine, 30mg Ketorolac, 20cc of Exparal and 50cc of injectable saline. The tourniquet was then inflated to 275mmHg. The knee was thoroughly irrigated with a pulse lavage and dried. On the back table, with the implants opened, the cement was mixed. 2 batches of antibiotic laden cement were prepared with vacuum assistance. After the cement was ready a small amount was placed on to the back side of the tibial component at the keel. A small amount was placed onto the posterior flange of the femur. Cement was manual pressurized and impregnated into the cut surface of the tibia. The tibial component was then inserted into the cut surface and impacted into position. Excess cement was removed and the component was reimpacted. Again, excess cement was removed and our attention was then turned to the femur. The femoral cut surface was once again dried and cement was manually impacted into the cut surface. The femoral component was lined with the lug holes and impacted. Excess cement was removed. It was ensured to be down against the cut surface. The trial polyethylene was then inserted and the leg was brought out into full extension for the duration of the cement curing process, approximately 15min. Cement was lastly manually impacted into the cut surface of the patella and the patellar button was clamped into position and held. During this process attention was turned to the gutters of the knee and for all interfaces for any excess cement. After the cement had finally cured, approximately 15min, the clamp was removed from the patella and the knee was taken through range of motion. A size 7mm polyethylene component provided the best range of motion and stability with less than 2mm gapping with medial and lateral stress and full extension without significant hyperextension. The patella was tracking with a no-thumbs technique. The trial poly was removed and once again the knee was checked for any loose, excess, or errant cement. The poly component was then inserted into position after cleaning and drying the tibial tray. The capsule was then reapproximated with a No. 1 Vicryl at multiple locations. The capsule was finally closed with a No. 2 Stratafix, barbed suture. The tourniquet was then released and the arthrotomy appeared watertight without significant bleeding. The second dosing of 1g TXA was started. Deep tissues were then reapproximated with 0 Vicryl and 2-0 Vicryl. The skin was closed with a running 3-0 Monocryl in a subcuticular fashion. This was reinforced with skin glue. A Mepilex silver dressing was applied along with a [id number] BRENDA wrap. A CryoCuff was applied. Bam was transferred to the hospital bed without difficulty an suffering no apparent complication. Bam has a good prognosis. Physical therapy will start today and without restrictions, weight-bearing as tolerated. Aspirin 81mg BID will be used for DVT prophylaxis.
[2020-03-21] MEDS: ceFAZolin 1 GM/50 ML BAG IVPB (14:52)
[2020-03-21] MEDS: oxyCODONE 5 MG TAB PO (15:01)
--- NOTE | 2020-03-21 15:29 | PT.INIE ---
Date of service: 03/21/20 Time of Service: 12:40 PT Notes Visit Reasons: L KNEE TOTAL Physical Therapy Inpatient Initial Evaluation Date: 03/21/2020 Referring Doctor: Dayton White MD PT Orders: PT CONSULT: Status post Ortho surgery Precautions: Fall. Standard. WBAT on left LE. Patient Profile/Admitting Diagnosis: Bam is a 60-year-old male with primary unilateral osteoarthritis of the left knee and is status post left total knee arthroplasty on postoperative day 0. PMHX: Medical History (Updated 03/14/20 @ 15:12 by Maria Isabel Lizarraga) BPH (benign prostatic hyperplasia) Chronic pain Hypertension Osteoarthritis Surgical History (Updated 03/16/20 @ 08:36 by Maria Isabel Lizraraga) Status post cholecystectomy (Resolved ~10/2009) Status post hip replacement (Resolved 06/20/14) 06/20/14; RIGHT ;DR. CRAWFORD Status post right foot surgery (Acute ~08/2019) [facility] [place] Social History/Home Situation: Lives with in a two-story home with 1 step to enter without a rail he states that he will be able to manage holding onto the door frame with no issues. They have a stair lift to the second floor of the house where their bedroom is. Independent with all ADLs without the need for an assistive ambulatory device or adaptive equipment. is very supportive and takes care of all meals, grocery shopping, and light housekeeping. Equipment Owned/DME: Standard walker Subjective: This is absolutely amazing man, I am glad I had this surgery done, I wished I could have done this sooner! Patient is very much delighted with how much and how better he is walking and moving after the surgery. He initially complained of 4/10 pain but intensity subsided with ambulation activity. He requested to use his boots for walking as he states that he walks better with them on. Objective: General Observation: Alexandro wraps on left LE. Cryo/Cuff on the left knee. IV access in the right UE. Anti-thromboembolic pumps to bilateral legs. Mental Status: Alert and oriented x4 Pain: 4/10 in the left knee ROM: Right Upper Extremity: Shoulder Flexion allows up to 90 degrees only due to pre-existing orthopedic issue. Shoulder abduction allows up to 90 degrees only due to pre-existing orthopedic issue. Elbow flexion WFL. Wrist flexion WFL. Opening and closing of hand WFL. Left Upper Extremity: Shoulder Flexion allows up to 90 degrees only due to pre-existing orthopedic issue. Shoulder abduction allows up to 90 degrees only due to pre-existing orthopedic issue. Elbow flexion WFL. Wrist flexion WFL. Opening and closing of hand WFL. Right Lower Extremity: Hip flexion WFL. Hip abduction WFL. Knee flexion WFL. Ankle dorsiflexion WFL. Ankle plantarflexion WFL. Left Lower Extremity: Hip flexion WFL. Hip abduction WFL. Knee flexion 20 to 100 degrees. Knee extension -20 degrees ankle dorsiflexion WFL. Ankle plantarflexion WFL. Strength: Right Upper Extremity: Shoulder flexors 3-/5. Shoulder abductors 3-/5. Elbow flexors 5/5. Elbow extensors 5/5. [employer] strong. Left Upper Extremity: Shoulder flexors 3-/5. Shoulder abductors 3-/5. Elbow flexors 5/5. Elbow extensors 5/5. [employer] strong. Right Lower Extremity: Hip flexors 5/5. Hip abductors 5/5. Knee flexors 5/5. Knee extensors 5/5. Ankle dorsiflexors 5/5. Ankle plantarflexors 5/5. Left Lower Extremity:Hip flexors 4/5. Hip abductors 4/5. Knee flexors 3-/5. Knee extensors 3-/5. Ankle dorsiflexors 4/5. Ankle plantarflexors 4/5. Sensation: Intact as to pain and pressure on bilateral lower extremities. Denies numbness, tingling, and paresthesias through bilateral lower extremities. Bed Mobility/Transfers: Rolling independent Supine to sit independent Sit to supine independent Sit to stand supervision Stand to sit supervision Bed to chair supervision Chair to bed supervision Gait: Tolerated level surface ambulation 100 feet using a front wheeled walker with contact-guard assist and IV pole management of PT, provided wheelchair follow for safety. Step through gait pattern with much improved heel toe gait pattern on left LE. indicated that patient was previously walking with the left heel up due to a pre-existing ankle deformity/contracture. Delia decreased. Balance: Static Sitting: Normal Dynamic Sitting: Normal Static Standing: Fair Dynamic Standing: Fair Special Tests: Mobility Limitations Standardized Measure [facility] 6 clicks Basic Mobility Inpatient Short Form: Raw Score: 21 CMS Score: 29% deficit Informed Consent/Education: Patient instructed in purpose of PT consult and plan of care. Assessment: Bam demonstrates range of motion and strength impairments in the left knee due to postoperative status requiring a need for the use of a front wheel walker for all mobility ADL performance reduce fall risk and maximize independence at home. Bam is a 60-year-old male with primary unilateral osteoarthritis of the left knee and is status post left total knee arthroplasty on postoperative day 0. Patient presents with clinical signs and symptoms consistent with current/admitting diagnoses that have resulted to mobility limitations, gait instability, generalized weakness, and impairment of motor control as demonstrated by the following impairment level findings: 1. Decreased strength to left knee major muscle groups 2. Impaired standing balance 3. Limitation of joint range of motion in left knee Impairments are contributing to the following functional limitations: 1. Inability to safely ambulate without assistive device and physical assistance 2. Increase completion time for mobility ADL performance 3. Increased fall risk 4. Inability to negotiate steps alone safely Patient is assessed as a afebrile 162 moderate complexity based on the following: History: 60-year-old male with impairment level findings, functional limitations, and past medical history as indicated above Examination: Demonstrable impairment in strength, range of motion, and mobility level with underlying impairments and functional limitations as documented above Presentation:Evolving Decision Makin moderate complexity Goals: N/A. PT consult and 1 treatment session only for mobility ADL performance and HEP performance. Plan of Care/Treatment Plan: N/A. PT consult and 1 treatment session only for mobility ADL performance and HEP performance. DISCHARGE RECOMMENDATIONS: Outpatient PT services in order to facilitate return to premorbid independent level. TREATMENT CODE/TIME: 10591 x 20 minutes, 17697 x 26 minutes beginning at 15:29 PM. Thank you for the opportunity to participate in the care of this patient. Mindy Blackburn PT, DPT, CLT [facility] [place], [place]
--- NOTE | 2020-03-21 16:29 | W.PM.DS.N ---
Date of service: 03/21/20 Time of Service: 16:39 DS: Diagnosis Discharge Diagnosis (1) Primary osteoarthritis of left knee: Status: Chronic Discharge Plan Disposition Patient Disposition: HOME Condition: Good Discharge Details Reason For Visit: L KNEE TOTAL Admit Date/Time: 03/21/20 07:49 Admit Provider: Dayton White Attending Provider: Dayton White Primary Care Provider: Bogdan Floyd [facility] Hospital Course: Patient was admitted to the medical/surgical floor following the procedure. The surgery was tolerated well without any notable medical, surgical, or anesthetic complications. Mobilization began postoperatively. He was voiding spontaneously. Vitals were stable. Physical therapy worked with the patient and was cleared for discharge home. No acute medical issues. Pain was controlled on oral regimen. Home Meds and New Rx's Prescriptions: New docusate sodium [Colace] 100 mg capsule 100 mg PO BID Qty: 30 RF: 0 morphine 60 mg tablet extended release 60 mg PO Q12H Qty: 28 RF: 0 oxycodone 10 mg tablet 10 mg PO .q4-6 PRNQty: 18 RF: 0 gabapentin 300 mg capsule 300 mg PO QHS Qty: 7 RF: 0 aspirin 81 mg tablet,delayed release (DR/EC) 81 mg PO BID Qty: 60 RF: 0 acetaminophen 500 mg tablet 1,000 mg PO Q8H PRN (Reason: pain) Qty: 90 RF: 3 pantoprazole 40 mg tablet,delayed release (DR/EC) 40 mg PO DAILY Qty: 30 RF: 0 Continued multivitamin [One Daily] 1 EACH tablet 1 tab PO DAILY RF: 0 Narcan 4 MG spray,non-aerosol 4 mg NS ONCE Qty: 1 RF: 0 sucralfate [Carafate] 1 gram tablet 1 gm PO BID 30 Days Qty: 180 RF: 4 diclofenac sodium 75 mg tablet,delayed release (DR/EC) 75 mg PO BID Qty: 180 RF: 4 famotidine 40 mg tablet 40 mg PO BID Qty: 180 RF: 4 alprazolam 1 mg tablet 1 mg PO HS PRN (Reason: anxiety) Qty: 30 RF: 1 duloxetine 60 mg capsule,delayed release(DR/EC) 60 mg PO DAILY Qty: 90 RF: 4 lisinopril 20 mg tablet 20 mg PO DAILY Qty: 90 RF: 4 lidocaine [Lidoderm] 1 PATCH patch 1 patch Topical Q24H Qty: 4 RF: 0 Discontinued morphine 60 mg tablet extended release 60 mg PO DAILY PRN MDD 60 mg Qty: 30 RF: 0 Discharge Instructions Additional Instructions: Total Knee Discharge Instructions Activity: The most important activity is to walk. You should try to take short walks a few times a day. It is important that when resting you work on keeping the knee straight. Avoid putting a pillow behind the knee as this will encourage flexion. Work on range of motion exercises as provided by Physical Therapy. - Start outpatient physical therapy within 2 weeks. - You should wear the MORALES hose on both legs for 2 weeks. Dressing: Keep the surgical dressing in place for at least one week. After the first week it may be removed and replace with light gauze and tape or nothing. It may get wet after 3 days but avoid soaking the dressing. If it gets wet, just lightly pat dry. Medications: - You should take Tylenol and you may continue to take your anti-inflammatory, Diclofenac, as your primary pain control medications - You have been prescribed a stronger dose of your pain medication Morphine ER - you can now take this twice daily for pain (usually breakfast and dinner) - Additionally, you have been prescribed Oxycodone for breakthrough pain, take as needed as prescribed. - You have also been prescribed a stomach acid reduction agent Pantoprozole to help reduce stomach acid and reflux. - You will be taking Aspirin 81mg twice a day for DVT prevention for one month unless instructed otherwise. - You also have Gabapentin for nighttime pain and nerve pain for the first week - If you have constipation you should take Colace (which was prescribed) or Miralax ([id number]). It takes most people 3-4 days to have a bowel movement. Follow-up: 2 weeks Referrals: Dayton White MD [ [facility] STAFF PHYSICIAN] - Activity:: Activity as Tolerated Equipment/Supplies:: Walker Diet:: As Tolerated Discharge Orders Discharge Orders: Discharge Order (Routine); Ordered 03/21/20 Ordered By: Dayton White DS: Summary Status at Discharge Functional status at discharge: uses cane/walker Overall status at discharge: patient is progressing back to baseline Mental Status: mental status grossly normal Speech and Movement: speech and movement normal Mood: congruent mood Affect: normal affect Exam Psych Mental Status: mental status grossly normal Speech and Movement: speech and movement normal Mood: congruent mood Affect: normal affect DS: Data Vitals/I&O Vitals and I&O: Vital Signs Temperature 36.3 C L 03/21/20 14:38 Temperature Source Axillary 03/21/20 14:38 Pulse 66 03/21/20 14:38 Pulse Rhythm Regular 03/21/20 15:19 Respiratory Rate 16 03/21/20 14:38 Respiratory Effort 03/21/20 15:19 Respiratory Depth Normal 03/21/20 15:19 Respiratory Pattern Normal 03/21/20 15:19 Blood Pressure 139/81 03/21/20 14:38 Pulse Oximetry 99 03/21/20 14:38 Respiratory End-tidal CO2 42 03/21/20 13:55 Oxygen Delivery Method Room Air 03/21/20 14:38 Oxygen Flow Rate 0 03/21/20 14:38 Pain Level 7 03/21/20 15:01 Intake & Output 03/20/20 03/21/20 03/21/20 23:59 11:59 23:59 Intake Total 50 / 1440 1390 / 1440 Output Total 150 / 150 Balance 50 / 1290 1240 / 1290 Weight 109.4 kg Intake: IV 50 / 1370 1320 / 1370 Oral 70 / 70 Output: Estimated Blood Loss 150 / 150 Other: Emesis Description None Data Completed and Pending Labs on day of discharge: Labs from last 24 hours 03/21/20 03/21/20 08:12 08:12 WBC 4.88 RBC 4.53 Hgb 14.0 Hct 43.1 MCV 95.1 H MCH 30.9 MCHC 32.5 RDW 13.1 Plt Count 239 MPV 9.8 Sodium 137 Potassium 4.5 Chloride 102 Carbon Dioxide 26.3 Anion Gap 8.7 BUN 20 H Creatinine 0.81 Estimated GFR/1.73 m2 >= 60.00 Glucose 115 H Calcium 9.3 PFSH Social History (Updated 03/16/20 @ 08:17 by Maria Isabel Lizarraga) Smoking/Tobacco Use Status: Never Alcohol Intake: never Drug use: Daily Substance use type: does not use Pets and animals: Yes Pets and animals: dog(s) What type of physical activity do you participate in: none Lula/Christianity: Episcopal Do you feel safe in your relationship?: Yes
[2020-03-21] MEDS: Ketorolac 15 MG/ML VIAL IVP (17:12)
== END 2020-03-21 18:20 | disposition home or self-care (01) | DRG 470 ==
LOC: PDS 10:25 → MS 13:30 → PDS 03-22 09:18
PROVIDERS: Admitting Provider Student in an Organized Health Care Education/Training Program; PCP Family Medicine; Visit Provider Student in an Organized Health Care Education/Training Program
PROC: 0SRD0J9 Replacement of Left Knee Joint with Synthetic Substitute, Cemented, Open Approach (ICD-10-PCS; CPT 27447; principal; 2020-03-21 10:30)
DX: M17.12 Unilateral primary osteoarthritis, left knee (principal); M25.562 Pain in left knee; Z96.652 Presence of left artificial knee joint; G89.18 Other acute postprocedural pain; I10 Essential (primary) hypertension; G89.29 Other chronic pain
CPT/HCPCS: 27447; 20985; 36415; 76942; 80048; 85027; 97162; 97530; NC; J0690; J1885; J2250; J2405; J3010

== ENCOUNTER 2020-04-06 10:45 | Outpatient (CLI) | payer OTHER, SELFPAY ==
--- NOTE | 2020-04-06 09:15 | DI.RAD_ITS ---
EXAM: XR KNEE LT 1V INDICATION: 1st post op. COMPARISON: CR XR KNEE LT 2V AP,LAT from 01/14/2020 CR XR STANDING ALIGNMENT from 04/06/2020 TECHNIQUE: 2D digital imaging was performed. FINDINGS: A left knee prosthesis is now seen. The components appear satisfactorily aligned. No abnormal bony lucencies are seen. DATA REPOSITORY: RADIATION DOSE DELIVERED:
--- NOTE | 2020-04-06 09:15 | DI.RAD_ITS ---
EXAM: XR STANDING ALIGNMENT CLINICAL HISTORY: 1st post op. TECHNIQUE: 2D digital imaging was performed. COMPARISON: CR RIGHT FOOT COMPLETE from 08/29/2015 CR RIGHT ANKLE COMPLETE from 08/29/2015 CR XR ANKLE RT COMPLETE from 12/03/2019 CR XR STANDING ALIGNMENT from 01/14/2020 FINDINGS: There is a right hip prosthesis, left knee prosthesis and hardware in the right ankle. Mild degenera tive changes of the left hip. The left femoral head projects superior to the right hip prosthesis. Degenerative changes are noted in both ankles, greater on the left. IMPRESSION: Mild overall leg length discrepancy. DATA REPOSITORY: RADIATION DOSE DELIVERED:
== END 2020-04-06 11:05 ==
PROVIDERS: Visit Provider Student in an Organized Health Care Education/Training Program
DX: Z96.652 Presence of left artificial knee joint (principal); M21.70 Unequal limb length (acquired), unspecified site; M19.072 Primary osteoarthritis, left ankle and foot; M19.071 Primary osteoarthritis, right ankle and foot
CPT/HCPCS: 73560; 77073

== ENCOUNTER → 2021-03-22 09:19 | Outpatient (BNVA) | payer MEDICARE, SELFPAY | PROVIDERS: Visit Provider Surgery | DX: K21.9 Gastro-esophageal reflux disease without esophagitis (principal); G89.4 Chronic pain syndrome | CPT/HCPCS: 99213 ==